=== PATIENT | male | born 2000 | race Caucasian/White ===

== ENCOUNTER 2025-09-02 12:53 | Day surgery (SDC) | payer BC, SELFPAY ==
--- NOTE | 2025-08-27 11:35 | EXP.HP ---
History of Present Illness *Admission Date: 09/02/25 *History of present illness: Mr. Vee is a 24-year-old gentleman who is here for diagnostic sigmoidoscopy. He reports marked mucus with his bowel movements which has been going on for more than a year. He did have a colonoscopy in November 2024 (Dr. Maximilian Thao) in [place]. The colonoscopy report showed localized area of mildly erythematous mucosa in the transverse colon and a patchy area of mildly erythematous mucosa found in the rectum. Biopsies were normal. The examination was otherwise normal but there was a moderately redundant colon. There were nonbleeding internal hemorrhoids (grade 1). The patient was placed on Bentyl which did not improve his symptoms at all. He was having bloating and this did improve with probiotics. He continues to have long periods of time on the commode and up to 2 hours daily with incomplete defecation. His bowel movements are formed. This has been going on for 4 years but has worsened over the last year. He initially lost weight but now is maintaining his weight. He will rarely see a spot of blood on the tissue if he wipes excessively from hemorrhoids. He reports no family history of colitis, Crohn's or colon cancer. He reports no lower back pain or bladder evacuation difficulties. The patient was referred by his family (Dr. Jeffry Figueroa) who is a primary care physician. [facility] Disclaimer: The information contained in this section may have been updated after the patient was seen, as this information can be updated by other users. Medical History Asthma Surgical History History of oral surgery Hx of appendectomy Family History Other Family history non-contributory Social History (Updated 09/02/25 @ 13:06 by Ellen Mott RN) Smoking Status: Never smoker alcohol intake: never substance use type: denies use current occupational status: student Travel in the last 8 weeks?: None Have you lived/traveled outside US in past 30 days?: No Contact w/someone who lives/traveled outside US past 30 days?: No Exposure to someone with infectious disease in past 14 days?: No Do you have a fever (greater than 100.4 F or 38 C)?: No Have you tested positive for COVID-19?: No Exposed to someone with COVID-19 in past 14 days?: No Do you have a sore throat?: No Do you have a cough?: No Do you have any weakness?: No Do you have any diarrhea?: No Are you experiencing any unusual bleeding?: No Do you have any muscle aches/pain?: No Do you have any abdominal pain?: No Are you experiencing loss of taste or smell?: No Review of Systems Review of Systems Review of systems (narrative): Negative *Cardiovascular Comments: Negative *Gastrointestinal Comments: Negative *Genitourinary Comments: Negative *Musculoskeletal Comments: Negative *Neurologic Comments: Negative Meds Home Medications and Allergies Home Medications ?Medication ?Instructions ?Recorded ?Confirmed ?Type Bacillus coagulans 10 billion cell 10 cell PO DAILY 06/15/25 09/02/25 History capsule,delayed release (Probiotic (B. coagulans)) famotidine 40 mg tablet 40 mg PO DAILY 06/15/25 09/02/25 History levocetirizine 5 mg tablet (Xyzal) 5 mg PO DAILY 06/15/25 09/02/25 History sodium,potassium,mag sulfates 17.5 See Rx Instructions PO .COMPLEX 08/19/25 09/02/25 Rx gram-3.13 gram-1.6 gram oral soln #354 mL (Suprep Bowel Prep Kit) New Prescriptions to Start Prescriptions: Allergies Allergy/AdvReac Type Severity Reaction Status Date / Time amoxicillin Allergy Severe Other Verified 09/02/25 13:17 Penicillins Allergy Severe Other Verified 09/02/25 13:17 Exam *Routine HEENT Exam Head: Present normocephalic Eye: Present EOMI and PERRL ENT: Present mucous membranes moist *Routine Neck Exam Neck: Present supple *Routine Respiratory Exam Respiratory: Present CTA bilaterally *Routine Cardiovascular Exam Cardiovascular: Present RRR *Routine Abdominal Exam Abdominal: Present soft and normoactive bowel sounds; Absent tenderness *Routine Rectal Exam Rectal:: deferred *Routine Genitalia Exam Genitalia:: deferred *Routine Extremities Exam Extremities: Absent cyanosis, clubbing or edema *Routine Skin Exam Skin: Present warm; Absent rash *Routine Neurological Exam Neurological: Present alert and oriented X3 Assessment and Plan *Assessment and plan (1) Mucus in stool: Status: Acute Category: Medical Code(s): R19.5 - Other fecal abnormalities (2) Incomplete defecation: Status: Acute Category: Medical Code(s): R15.0 - Incomplete defecation Plan A/P: 1. Marked mucus in the stool with incomplete defecation is the preprocedural diagnosis. The patient will be anesthetized/sedated using MAC sedation. The patient has been seen and examined. Cardiac and lung assessment prior to the examination is stable. Proceed with planned diagnostic sigmoidoscopy.
[2025-08-31 10:22] VITALS: BMI 28.0
--- NOTE | 2025-09-01 08:01 | P.PCN_ITS ---
[facility] Procedure Note Date: 09/02/25 Time: 14:16 Procedure Note:: Colonoscopy procedure Report: Colonoscopy with cold snare polypectomy and cold biopsies Endoscopist: Les Cross II, MD Referring physician: Daniel Mckeon PA-C, [address] [facility], [id number] Date of Procedure: September 12, 2025 Equipment: Olympus 180 variable stiffness pediatric colonoscope Sedation: MAC sedation Indication: Mr. Vee is a 24-year-old gentleman who is here for diagnostic sigmoidoscopy. He reports marked mucus with his bowel movements which has been going on for more than a year. He did have a colonoscopy in November 2024 (Dr. Maximilian Thao) in [place]. The colonoscopy report showed localized area of mildly erythematous mucosa in the transverse colon and a patchy area of mildly erythematous mucosa found in the rectum. Biopsies were normal. The examination was otherwise normal but there was a moderately redundant colon. There were nonbleeding internal hemorrhoids (grade 1). The patient was placed on Bentyl which did not improve his symptoms at all. He was having bloating and this did improve with probiotics. He continues to have long periods of time on the commode and up to 2 hours daily with incomplete defecation. His bowel movements are formed. This has been going on for 4 years but has worsened over the last year. He initially lost weight but now is maintaining his weight. He will rarely see a spot of blood on the tissue if he wipes excessively from hemorrhoids. He reports no family history of colitis, Crohn's or colon cancer. He reports no lower back pain or bladder evacuation difficulties. The patient's recent PCR stool testing was negative for microbial pathogens. The patient was referred by his family (Dr. Jeffry Figueroa) who is a primary care physician. Procedure: Prior to the procedure, a history and physical exam was performed, and patient's medications and allergies were reviewed. The risks, benefits and alternatives of the sedation and procedure were discussed with the patient. All questions were answered and informed consent was obtained. The patient was brought to the procedure room. Patient identification and proposed procedure were verified by the physician and the nurse. The patient was placed in a left lateral decubitus position and the scope was passed under direct vision. Throughout the procedure, the patient's blood pressure, pulse, and oxygen saturations were monitored continuously. The colonoscopy was accomplished without difficulty. The patient tolerated the procedure well. Findings: On digital rectal examination there was normal rectal tone. There were no external hemorrhoids. There were no anal fissures or fistulas. There was no rectocele or prolapse. The colonoscope was introduced through the anal canal to the rectum and advanced to the cecum. The ileocecal valve and appendiceal orifice were identified. The scope was advanced a short distance into the ileum which appeared grossly normal. The scope was then withdrawn into the colon. There was a diminutive cecal polyp (4 mm) (probable mucosal prolapse polyp)?removed via cold snare polypectomy. The remaining cecum, ascending, transverse, descending, sigmoid colons were grossly normal. There was very mild mucosal erythema in the rectum but no granularity and no loss of vascular pattern. 4 biopsies were taken from the rectum for histologic examination. There were no mucosal abnormalities identified. Upon retroflexion within the rectum there were grade 2 internal hemorrhoids. The preparation was good throughout. Impression: 1. Diminutive cecal polyp 2. Normal colonoscopy with intubation of the terminal ileum 3. Grade 2 internal hemorrhoids Plan: Mucus in stool is commonly caused by IBS as well as constipation/incomplete defecation. This can also be caused by infection, food allergies, dehydration or polyps. There is no sign of infection or colitis. The patient does have incomplete defecation. He improved some with pelvic floor PT. I would focus on good hydration and fiber supplementation. I would consider course of Flagyl or Xifaxan to see if there is any change. I will send [facility] food allergy panel.
[2025-09-02 13:06] VITALS: BP 146/87; PULSE 67; RESP 16; TEMP 36.1; O2SAT 100; BMI 28.0
[2025-09-02] MEDS: LACTATED RINGERS 1000ML 1,000 ML 50 ML IV (13:32)
--- NOTE | 2025-09-02 13:45 | EXP.ANES.CKL ---
[facility] Disclaimer: The information contained in this section may have been updated after the patient was seen, as this information can be updated by other users. Medical History Asthma Surgical History History of oral surgery Hx of appendectomy Family History Other Family history non-contributory Social History (Updated 09/02/25 @ 13:06 by Ellen Mott RN) Smoking Status: Never smoker alcohol intake: never substance use type: denies use current occupational status: student Travel in the last 8 weeks?: None Have you lived/traveled outside US in past 30 days?: No Contact w/someone who lives/traveled outside US past 30 days?: No Exposure to someone with infectious disease in past 14 days?: No Do you have a fever (greater than 100.4 F or 38 C)?: No Have you tested positive for COVID-19?: No Exposed to someone with COVID-19 in past 14 days?: No Do you have a sore throat?: No Do you have a cough?: No Do you have any weakness?: No Do you have any diarrhea?: No Are you experiencing any unusual bleeding?: No Do you have any muscle aches/pain?: No Do you have any abdominal pain?: No Are you experiencing loss of taste or smell?: No [facility] Anesthesia Checklist Patient Identification Patient Identification: Arm Band and Family Structural Data Admitted From: Home Planned Operative Procedure/s: Bowel proceduce Verified Documents: Surgical Consent and History and Physical NPO Status Verified Time NPO: 00:00 Additional verifications Patient : No Anesthesia Reactions: No Hx Blood Transfusions: No Blood Transfusion Reaction: No Cephalosporin Allergy: No Previous Colonoscopy: Yes Airway Assessment Mallampati Score:: Class II C-Spine Mobility Assessed: Yes TMJ Mobility Assessed: Yes Neurological Assessment Level of Consciousness: Awake, Alert, Appropriate and Follows Commands Hx Seizures: No Numbness or tingling in extremities: No Anesthesia Plan Anesthesia Risk discussed: Yes ASA Class: II Anesthesia Type: MAC
[2025-09-02 14:19] VITALS: BP 102/35; PULSE 58; RESP 19; TEMP 36.6; O2SAT 95
[2025-09-02 14:29] VITALS: BP 96/38; PULSE 57; RESP 18; O2SAT 95
[2025-09-02 14:39] VITALS: BP 100/40; PULSE 59; RESP 18; O2SAT 98
[2025-09-02 14:49] VITALS: BP 107/44; PULSE 75; RESP 18; O2SAT 99
== END 2025-09-02 15:01 | disposition home or self-care (01) ==
PROVIDERS: Visit Provider Internal Medicine Gastroenterology
PROC: 0DJD8ZZ Inspection of Lower Intestinal Tract, Via Natural or Artificial Opening Endoscopic (ICD-10-PCS; CPT 45330; principal; 2025-09-02 14:30)
DX: K63.5 Polyp of colon (principal); K64.1 Second degree hemorrhoids; K63.89 Other specified diseases of intestine; Z88.0 Allergy status to penicillin
CPT/HCPCS: 45380; 45385; J2003; J2704; J7120